=== PATIENT | male | born 1960 | race American Indian/Alaskan Native ===

== ENCOUNTER 2021-04-12 10:58 | Outpatient (CLI) | payer OTHER ==
[2021-04-12 12:13] LABS: Blood Urea Nitrogen 14 mg/dL (9-20)
--- NOTE | 2021-04-12 13:15 | Cat Scan Report ---
CT ABDOMEN AND PELVIS WITH AND WITHOUT CONTRAST INDICATION / CLINICAL INFORMATION: Abdominal pain. TECHNIQUE: Axial CT images were obtained through the abdomen and pelvis before and after 100 cc IV contrast. Sag ittal and coronal reformatted images. All CT scans at this location are performed using CT dose reduc tion for ALARA by means of automated exposure control. COMPARISON: None available. FINDINGS: LOWER CHEST: No significant abnormality. LIVER: No significant abnormality. GALLBLADDER: No significant abnormality. BILE DUCTS: No significant abnormality. PANCREAS: No significant abnormality. SPLEEN: No significant abnormality. ADRENALS: No significant abnormality. RIGHT KIDNEY and URETER: No significant abnormality. LEFT KIDNEY and URETER: No significant abnormality. STOMACH and SMALL BOWEL: No significant abnormality. COLON: No significant abnormality. APPENDIX: No significant abnormality. PERITONEUM: No free fluid. No free air. No fluid collection. LYMPH NODES: No significant adenopathy. AORTA and ARTERIES: No significant abnormality. IVC and VEINS: No significant abnormality. URINARY BLADDER: No significant abnormality. REPRODUCTIVE ORGANS: The prostate gland is mildly enlarged measuring 5.5 cm in diameter. The right si de of the prostate gland projects into the bladder base. Less likely this could represent a bladder m ass. Consider correlation with PSA levels. A moderate right hydrocele is noted in the right scrotal s ac. ADDITIONAL FINDINGS: None. SKELETAL SYSTEM: A 1.5 cm sclerotic bony lesion is identified in the right posterior iliac bone. Subt le areas of sclerosis are identified in the superior left iliac bone. The SI joints appear nearly fus ed. IMPRESSION: No acute inflammatory process is appreciated. Possible prostate mass as described. Less likely a bladder mass could be considered. I favor a prosta te origin. Slightly suspicious sclerotic bony lesions are identified in both iliac bones. These findings are con cerning for metastatic prostate cancer. Recommend correlation with PSA levels. Moderate right hydrocele. Signer Name: Rahul Tejada Jr, MD Signed: 04/12/2021 1:11 PM Workstation Name: [id number]
== END 2021-04-12 10:59 | disposition home or self-care (01) ==
LOC: CT 10:58
PROVIDERS: ATTEND Internal Medicine
DX: N43.3 Hydrocele, unspecified (principal); R73.03 Prediabetes; I10 Essential (primary) hypertension; N40.0 Benign prostatic hyperplasia without lower urinary tract symptoms
CPT/HCPCS: 36415; 74178; 82565; 84520; Q9967